=== PATIENT | female | born 2000 | race Caucasian/White ===

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

== ENCOUNTER → 2020-03-07 | Outpatient (CLI) | payer BC ==
[~2020-03-07] MED LIST: CEFADROXIL500 M1 PO
== END | disposition home or self-care (01) ==
LOC: COVID19 14:05
PROVIDERS: ATTEND Social Worker Clinical
DX: U07.1 COVID-19 (principal)

== ENCOUNTER 2024-02-13 15:38 | Emergency (ER) | payer BC ==
[~2024-02-13] VITALS: Ht 172.7 cm; Wt 61.2 kg
[2024-02-13 15:49] VITALS: BP 124/90
[2024-02-13] MEDS ORDERED: NURTEC ODT75 MG PO (15:51)
[2024-02-13] MEDS ORDERED: VENLAFAXINE H37.5 M2 PO (15:51)
[2024-02-13] MEDS ORDERED: NAPROXEN250 MG PO (15:51)
[2024-02-13 16:20] LABS: BASO % 0.2 % (0.0-1.0); EOS # 0.1 10*3/uL (0.0-0.4); EOS % 1.2 % (1.0-4.0); HEMATOCRIT 39.2 % (37.0-47.0); MEAN CELL VOLUME 84.5 fl (81.0-99.0); MEAN CORPUSCULAR HGB 26.7 pg (27.0-31.0); MEAN CORPUSCULAR HGB CONC 31.6 g/dl (33.0-37.0); MEAN PLATELET VOLUME 9.6 fl (9.6-12.3); MONO # 0.5 10*3/uL (0.1-1.0); MONO % 5.8 % (3.0-9.0); NEUT # 6.7 10*3/uL (2.3-7.9); PLATELET COUNT AUTOMATED 303 10*3/uL (130-400); RED BLOOD COUNT 4.64 10*6/uL (4.10-5.10); RED CELL DISTRI WIDTH 13.5 % (0-14.5)
[2024-02-13 16:44] LABS: ALKALINE PHOSPHATASE 96 U/L (46-116); BUN 9 mg/dl (9-23); CHLORIDE 106 mmol/L (98-107); LIPASE 47 U/L (12-53); POTASSIUM 3.9 mmol/L (3.4-5.1); TOTAL PROTEIN 7.9 gm/dL (6.0-8.0)
[2024-02-13 16:46] LABS: SGPT/ALT < 7 U/L (5-49)
[2024-02-13 18:01] LABS: BILIRUBIN Negative (Negative); BLOOD Negative (Negative); CLARITY Clear (Clear); COLOR Yellow (Yellow); GLUCOSE Negative (Negative); KETONE Negative (Negative); LEUKO ESTERASE 1+ (Negative); NITRITE Negative (Negative); PH 5.5 (4.5-8.0); SPECIFIC GRAVITY <= 1.005 (1.001-1.030); UROBILINOGEN 0.2 E.U./dl (0.0-1.0)
[2024-02-13 18:11] LABS: BACTERIA 2+
[2024-02-13] MEDS ORDERED: CIPRO500 MG PO (18:40)
[2024-02-13] MEDS ORDERED: MIRALAX POWDER17 G1 PO (18:40)
[2024-02-13] MEDS ORDERED: Ciprofloxacin Hydrochloride 500 MG TAB PO ONE (18:45)
== END 2024-02-13 16:50 | disposition home or self-care (01) ==
LOC: ED 15:38
PROVIDERS: Nurse Practitioner Family
DX: N39.0 Urinary tract infection, site not specified (principal); K59.00 Constipation, unspecified; R10.31 Right lower quadrant pain